=== PATIENT | male | born 1980 | race Caucasian/White ===

== ENCOUNTER → 2023-07-18 07:07 | Outpatient (REF) | payer MEDICARE, MEDICAID, SELFPAY | LOC: MRI 3T 07:07 | PROVIDERS: ATTENDING PHYSICIAN Orthopaedic Surgery Hand Surgery | DX: M75.42 Impingement syndrome of left shoulder (principal) | CPT/HCPCS: 73221 ==

== ENCOUNTER 2023-07-26 08:14 | Emergency (ER) | payer MEDICAID, MEDICARE, SELFPAY ==
[2023-07-26 08:17] VITALS: BP 145/85
--- NOTE | 2023-07-26 09:10 | ED.GENMED ---
History of Present Illness
General
Chief Complaint: Abdominal Symptoms
Source: patient
Exam Limitations: none
Time Seen by Provider: 07/26/23 08:48
Travel History
Have you had any contact with someone who has COVID-19?: No
Do you have any symptoms of coronavirus? Fever > 100 degrees, chills, cough, shortness of breath, sore throat, loss of taste or smell, muscle aches, or headache?: No
History of Present Illness
History of Present Illness:
42-year-old male started with low-grade fever nausea vomiting watery diarrhea yesterday. [place] lightheaded and weak in the bathroom. Passed out outside the bathroom. Hit his right forehead. No abdominal pain except for some cramping when he has
diarrhea. No recent antibiotics or travel history. Patient does have chickens at home and is concerned this could be Salmonella
Past History
Past History
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
ED Past Surgical History: None
Social History
Tobacco: Former smoker
Drug: Narcotics
Personal: Other (Engaged)
Living: with roommate
Employment: Not employed
Family History
Family History: Other (No significant)
Review of Systems
Review of Systems
All Other Systems: Not applicable
Constitutional: Reports fever
Respiratory: Reports no symptoms
Cardiac: Reports no symptoms
Phy Exam
Physical Exam
Physical Exam:
GENERAL: Alert and oriented in no apparent distress
EYE: Orbits normal.
NECK: Supple, nontender
ENT: Pharynx without erythema. Abrasion and mild ecchymosis to the right zygoma and right forehead.
CARDIAC: Regular rate and rhythm without any obvious murmurs.
LUNGS: Clear breath sounds,normal
ABDOMEN: Soft, without focal tenderness or distention
NEUROLOGICAL: Alert and oriented , grossly non-focal
SKIN: Warm and dry, no rash or lesion, no discoloration, skin intact.
MUSCULOSKELETAL: No edema,no deformity.Good color
PSYCH: Normal and appropriate interaction.
Course
Orders/Labs/Results
Orders:
Orders
07/26/23 08:55
Electrocardiogram (*1) Stat
Reason for Study: Abdominal Pain
Cardiac Monitoring- Treatment ONCE
EKG- Treatment ONCE
IV Insert/Care/Rem.- Treatment PRN
0.9% Sodium Chloride 1000 ml [Nss] 1,000 ml IV BOLUS
07/26/23 09:15
Blood Culture Q30M
[facility]ENT[facility] Source: Blood/Venous
Specimen Description:
07/26/23 09:37
Complete Blood Count/With Diff Urgent
Comprehensive Metabolic Panel Urgent
Lipase Urgent
Blood Culture Q30M
QUENTIN Source: Blood/Venous
Specimen Description:
STOOL [C difficile Antigen & Toxins] Urgent
[facility] Source: Feces/Stool
Specimen Description:
Date Specimen was Collected: 07/26/23
Time Specimen was Collected: 09:27
Stool Culture Urgent
[facility] Source: Feces/Stool
Specimen Description:
Date Specimen was Collected: 07/26/23
Time Specimen was Collected: 09:27
07/26/23 10:53
Urinalysis Reflex To Culture Urgent
Date Specimen was Collected: 07/26/23
Time Specimen was Collected: 10:44
Abnormal Lab Results
07/26/23
09:37
Absolute Lymphs (auto) 1.1 L 10^3/uL
(1.2-3.4)
Neutrophils % 76.9 H %
(42.2-75.2)
Lymphocytes % 15.1 L %
(20.5-51.1)
Glucose 118 H mg/dl
(70-99)
07/26/23 09:37
06/17/24 09:37
Vital Signs
Initial and Last Documented VS:
Initial Vital Signs
Temp Pulse Resp BP Pulse Ox
99.0 F 92 16 145/85 98
07/26/23 08:17 07/26/23 08:17 07/26/23 08:17 07/26/23 08:17 07/26/23 08:17
Last Documented Vital Signs
Temp Pulse Resp BP Pulse Ox
99.0 F 85 16 138/88 98
07/26/23 08:17 07/26/23 11:00 07/26/23 08:17 07/26/23 11:37 07/26/23 11:37
MDM/Problems Addressed
Differential Diagnosis Includes:
Patient has 3 issues. #1 syncope. Very very likely vasovagal. Nothing to support other etiology. Will get an EKG and monitor him.
#2. Trauma related to syncope. Initially I had recommended CT head facial and cervical spine for completeness although very low clinical suspicion. This was discussed with the patient at length and he would like to hold off on this testing. He
is aware of the risk of not getting a CT.
#3. Nausea vomiting diarrhea. Likely infectious. Fluids stool culture.
*Pulse Oximetry
Patient hypoxic: no
*EKG
Interpreted by ED Provider?: Yes
Interpretation: abnormal
Comparison EKG: no changes
Heart Rate: 76
Rhythm: sinus
[place]: normal axis
Interval: normal interval
QRS Pattern: normal QRS
Ischemia: non-specific ST changes
*Critical Care Note
Total Time (30-74mins, 75-104mins- exclusive of procedures): Not Applicable
Update Note
Update Note:
Patient feeling better prior to discharge. Appears well and nontoxic. No shaking chills. EKG with nonspecific inferior changes but no acute changes. History not consistent with CAD. This was a syncopal episode related to vomiting and diarrhea
and chills.
ED Attending Note
-
Portions of this chart may have been created with voice recognition software.� Occasional wrong word or��sound alike� substitutions may have occurred due to the inherent limitations of voice recognition software.
Discharge Plan
Departure
Patient Disposition: Home (Routine Discharge)
Date of Disposition: 07/26/23
Time of Disposition: 12:49
Patient with high blood pressure during this ER visit?: Yes
Discharge Problem:
Vomiting/diarrhea
Instructions: Nausea and Vomiting, Adult (DC), Acute Diarrhea, BLOOD PRESSURE
Prescriptions:
No Action
Methadone
20 mg PO DAILY
Patient Comments:
given to pt. daily at the clinic.
metaxalone [Skelaxin] 800 MG tablet
1 tab PO DAILYPRN PRN (Reason: muscle spasm)
Referrals:
NONE,* [Family Provider] -
Activity Restrictions/Additional Instructions:
Stay well-hydrated.
Light diet
Stool culture should be back in a few days
Return sooner with worsening diarrhea, abdominal pain, persistent fever or any other concerning symptoms
Also get rechecked if symptoms have not resolved in 1 to 2 days
Interventions
Interventions:
*Risk Screen - Suicide Last Done: 07/26/23 09:42
*Neglect/Abuse Screening Last Done: 07/26/23 09:42
*ED COVID-19 Vaccine History Last Done: 07/26/23 08:17
HA-Ybsgeg-Vwzipsvqjh Assessment Last Done: 07/26/23 09:41
Discharge Date and Time
Print Language: UPPER SORBIAN
[2023-07-26 09:36] VITALS: BP 136/73
[2023-07-26] MEDS: NSS 1000 IV (09:40)
[2023-07-26 09:48] LABS: % Basophils 0.3 % (0-2); % Immature Granulocytes 0.4 % (0-0.5); % Lymphocytes 15.1 % (20.5-51.1); % Monocytes 7.3 % (1.7-9.3); % Neutrophils 76.9 % (42.2-75.2); Absolute Lymphocytes 1.1 10^3/uL (1.2-3.4); Absolute Monocytes 0.5 10^3/uL (0.1-0.6); Absolute Neutrophils 5.7 10^3/uL (1.4-6.5); Hemoglobin 16.6 g/dL (13.0-18.0); Mean Corp Hgb Conc. 34.6 g/dL (33.0-37.0); Mean Corpuscular Volume 83.9 fL (80.0-94.0); Mean Platelet Volume 8.6 fL (7.4-10.4); Nucleated Red Blood Cells % 0 % (-); Platelet Count 214 10^3/uL (130-400); Red Blood Cell Count 5.72 10^6/uL (4.70-6.10); Red Cell Dist. Width 12.7 % (11.5-14.5); White Blood Cell Count 7.4 10^3/uL (4.8-10.8)
[2023-07-26 10:00] LABS: ALT (SGPT) 33 U/L (0-50); AST (SGOT) 30 U/L (17-59); Albumin 4.8 g/dl (3.5-5.0); Alkaline Phosphatase 81 U/L (38-126); Blood Urea Nitrogen 12 mg/dl (9-20); Calcium 9.9 mg/dl (8.4-10.2); Carbon Dioxide 26 mmol/L (22-30); Chloride 99 mmol/L (98-107); Glucose 118 mg/dl (70-99); Potassium 3.7 mmol/L (3.5-5.1); Sodium 138 mmol/L (135-145); Total Bilirubin 0.6 mg/dl (0.2-1.3); Total Protein 7.8 g/dl (6.3-8.2); eGFR > 60.00
[2023-07-26 10:30] LABS: Lipase 51 U/L (23-300)
[2023-07-26 11:01] LABS: Urine Albumin Negative (Neg - Trace); Urine Bilirubin Negative (Negative); Urine Character Clear (Clear); Urine Color Yellow; Urine Glucose Negative (Negative); Urine Ketone Negative (Negative); Urine Leukocyte Negative (Negative); Urine Nitrite Negative (Negative); Urine Occult Blood Negative (Negative); Urine Urobilinogen Negative (Neg - 1+)
[2023-07-26 11:37] VITALS: BP 138/88
== END 2023-07-26 13:07 | disposition home or self-care (01) ==
LOC: EMR 08:14
PROVIDERS: EMERGENCY PHYSICIAN Emergency Medicine
DX: R55 Syncope and collapse (principal); R19.7 Diarrhea, unspecified; R11.2 Nausea with vomiting, unspecified; S00.83XA Contusion of other part of head, initial encounter; R50.9 Fever, unspecified; W18.39XA Other fall on same level, initial encounter; Y93.01 Activity, walking, marching and hiking; Y92.002 Bathroom of unspecified non-institutional (private) residence as the place of occurrence of the external cause; R03.0 Elevated blood-pressure reading, without diagnosis of hypertension; G89.29 Other chronic pain; M54.9 Dorsalgia, unspecified; F32.A Depression, unspecified; F41.9 Anxiety disorder, unspecified; Z87.891 Personal history of nicotine dependence
CPT/HCPCS: 99284; 96360; 80053; 81003; 83690; 85025; 87040; 87045; 87046; 87324; 87427; 87449; 93005